=== PATIENT | male | born 1995 | race Caucasian/White ===

== ENCOUNTER 2017-09-11 15:00 | Emergency (ER) | payer OTHER ==
[2017-09-11] MEDS ORDERED: Bacitracin Oint 1 GM U/D Packet TOP ONE (15:48)
--- NOTE | 2017-09-11 15:55 | EDM.PDOC ---
ED HPI GENERAL MEDICAL PROBLEM - General Chief Complaint: Lower Extremity Injury/Pain Stated Complaint: NAIL THROUGH FOOT Time Seen by Provider: 09/11/17 15:30 Source of Information: Reports: Patient, Family History Limitations: Reports: No Limitations - History of Present Illness INITIAL COMMENTS - FREE TEXT/NARRATIVE: 21-year-old male accidentally shot a nail into his boot injuring his right foot. No other injury. Onset: Sudden Duration: Hour(s): (Within the past hour) Location: Reports: Lower Extremity, Right Severity: Moderate Worsens with: Reports: Other (Painful with weightbearing) Associated Symptoms: Reports: No Other Symptoms Right Feet Pain Score (Numeric/FACES): 7 - Related Data Allergies Allergy/AdvReac Type Severity Reaction Status Date / Time No Known Allergies Allergy Verified 09/11/17 15:16 Home Meds: Home Meds NK [No Known Home Meds] 09/11/17 [History] Past Medical History - Past Health History Medical/Surgical History: Denies Medical/Surgical History Social & Family History - Tobacco Use Smoking Status *Q: Never Smoker Second Hand Smoke Exposure: No - Caffeine Use Caffeine Use: Reports: Energy Drinks, Soda - Recreational Drug Use Recreational Drug Use: No Review of Systems - Review of Systems Review Of Systems: See Below Constitutional: Denies: Fever Ears: Denies: Dizziness Respiratory: Denies: Shortness of Breath GI/Abdominal: Denies: Nausea, Vomiting ED EXAM, GENERAL - Physical Exam Exam: See Below Exam Limited By: No Limitations General Appearance: Alert, No Apparent Distress, Anxious Respiratory/Chest: No Respiratory Distress Extremities: Other (Exam is otherwise limited to the right foot. After removal of the nail he was found to have a puncture wound on the medial top of the second toe with an exit wound on the medial bottom of the second toe. There was pain with palpation of the toe.) Course - Vital Signs Last Recorded V/S: Last Vital Signs Temp 98.4 F 09/11/17 15:21 Pulse 95 09/11/17 15:21 Resp 16 09/11/17 15:21 BP 136/82 09/11/17 15:21 Pulse Ox 100 09/11/17 15:21 - Orders/Labs/Meds Orders: Active Orders 24 hr Category Date Time Status Foot 2V Rt [CR] Stat Exams 09/11/17 15:27 Taken Toes Second Digit Rt T6 [CR] Stat Exams 09/11/17 15:48 Taken Meds: Medications Discontinued Medications Generic Name Dose Route Start Last Admin Trade Name Roseline PRN Reason Stop Dose Admin Bacitracin 1 dose 09/11/17 15:48 09/11/17 15:53 Bacitracin Oint 1 Gm TOP 09/11/17 15:49 1 dose ONETIME ONE Administration - Re-Assessments/Exams Free Text/Narrative Re-Assessment/Exam: 09/11/17 15:54 A two-view x-ray was obtained with the boot on. This showed a likely injury to the second toe or large toe but no involvement of the forefoot and no apparent bony injury. The nail had ridges but no anchoring wings. The nail was then pulled with a needle carvalho without complications and the boot and sock removed. This was when the puncture wounds were discovered. An x-ray was retaken of just the second toe isolated. 09/11/17 16:23 The second toe x-ray showed no fracture or bony involvement. Topical bacitracin and a Band-Aid was applied, the patient was put on cephalexin 3 times daily for 1 week and can increase activity as tolerated. Departure - Departure Time of Disposition: 16:37 Disposition: Home, Self-Care 01 Condition: Good Clinical Impression: Puncture wound of toe Qualifiers: Encounter type: initial encounter Qualified Code(s): S91.139A - Puncture wound without foreign body of unspecified toe(s) without damage to nail, initial encounter - Discharge Information Instructions: Puncture Wound, [id number] Referrals: PCP,None [Primary Care Provider] - Forms: ED Department Discharge Care Plan Goals: Take antibiotic 3 times a day, ibuprofen or naproxen as needed for pain and increase activity as tolerated. Recheck in one week if not improving satisfactorily or return anytime sooner if concerns of infection or other significant concerns - My Orders Last 24 Hours: My Active Orders 09/11/17 15:27 Foot 2V Rt [CR] Stat 09/11/17 15:48 Toes Second Digit Rt T6 [CR] Stat - Assessment/Plan Last 24 Hours: My Active Orders 09/11/17 15:27 Foot 2V Rt [CR] Stat 09/11/17 15:48 Toes Second Digit Rt T6 [CR] Stat
--- NOTE | 2017-09-12 08:23 | CR ---
Toes Second Digit Rt T6, Foot 2V Rt INDICATION: trauma FINDINGS: 2 views of the foot demonstrates a metallic nail through the soft tissues of the first and second toes. No evidence for acute fracture. Subsequent x-rays of the toes demonstrates removal of th e metallic nail with no evidence for acute fracture or foreign body.
== END 2017-09-11 16:37 | disposition home or self-care (01) ==
LOC: JP.ED 15:00
DX: S91.134A Puncture wound without foreign body of right lesser toe(s) without damage to nail, initial encounter (principal); W45.0XXA Nail entering through skin, initial encounter
CPT/HCPCS: 73620-26-RT; 73620-RT; 73660-26-T6; 73660-T6; 99283; 99284